=== PATIENT | female | born 1995 | race Hispanic/Latino ===

== ENCOUNTER 2017-06-23 16:35 | Observation (INO) | payer MEDICAID ==
[2017-06-23 17:12] LABS: APPEARANCE,URINE Clear (CLEAR); BILIRUBIN,URINE Negative (NEGATIVE); COLOR,URINE Yellow (YELLOW); GLUCOSE, URINE (UA) Negative (NEGATIVE); KETONES,URINE Negative (NEGATIVE); LEUKOCYTE ESTERASE ,URINE Trace (NEGATIVE); NITRATE,URINE Negative (NEGATIVE); OCCULT BLOOD,URINE Negative (NEGATIVE); PH,URINE 7.5 (5.0-8.0); PROTEIN,URINE Negative (NEGATIVE)
[2017-06-23 17:25] LABS: BACTERIA,URINE Few /HPF (None Seen); RBC,URINE None Seen /HPF (0-1); WBC,URINE None Seen /HPF (0-1)
[2017-06-29] MEDS ORDERED: LACTATED RINGERS 1000ML 1,000 ML IV ONE (21:28)
[2017-07-04] MEDS ORDERED: PROMETHAZINE HCL 25 MG/ML 1ML AMPULE IM ONE (09:11)
[2017-07-04] MEDS ORDERED: MEPERIDINE-PF 50 MG/ML SYG ONE (09:12)
[2017-07-06] MEDS ORDERED: CEFAZOLIN SODIUM 1 GM VIAL ONE ×2 (09:22→12:48)
[2017-07-06] MEDS ORDERED: LACTATED RINGERS 1000ML 1,000 ML IV ONE ×2 (09:22→12:40)
[2017-07-06] MEDS ORDERED: CALDOLOR 800MG+NS 250ML 250 ML IV ONE (09:22)
[2017-07-06] MEDS ORDERED: OXYTOCIN 10 USP UNITS/ML ONE (09:23)
[2017-07-06] MEDS ORDERED: ONDANSETRON HCL 4 MG/2 ML VIAL ONE (14:48)
== END 2017-06-23 17:56 | disposition home or self-care (01) ==
LOC: EDH 16:35 → UNDOADMOB 16:42 → LDH 16:42 → UNDODISOB 17:56
DX: O26.893 Other specified pregnancy related conditions, third trimester (principal); R51 Headache; H53.8 Other visual disturbances; Z3A.38 38 weeks gestation of pregnancy
CPT/HCPCS: 81001; 99285; G0378

== ENCOUNTER 2017-06-29 06:08 | Observation (INO) | payer MEDICAID ==
[~2017-06-29] VITALS: Ht 175.3 cm; Wt 144.2 kg
[2017-06-29] MEDS ORDERED: PREN-196 PO (06:58)
[2017-06-29] MEDS ORDERED: ROPIVACAINE 0.2%200ML EPIDURAL 200 ML EP SCH (07:00)
[2017-06-29] MEDS ORDERED: EPHEDRINE SULFATE 50 MG/ML AMPULE IVP PRN (07:00)
[2017-06-29] MEDS ORDERED: OXYTOCIN 10 USP UNITS/ML 20 UNIT in LACTATED RINGERS 1000ML 1,000 ML IV SCH (07:00)
[2017-06-29] MEDS ORDERED: NALOXONE HCL 0.4 MG/1 ML ML IV PRN (07:00)
[2017-06-29] MEDS ORDERED: LACTATED RINGERS 500 ML 500 ML IV PRN (07:00)
[2017-06-29 07:07] LABS: APPEARANCE,URINE Cloudy (CLEAR); BILIRUBIN,URINE Negative (NEGATIVE); COLOR,URINE Yellow (YELLOW); GLUCOSE, URINE (UA) Negative (NEGATIVE); KETONES,URINE Negative (NEGATIVE); LEUKOCYTE ESTERASE ,URINE Moderate (NEGATIVE); NITRATE,URINE Negative (NEGATIVE); OCCULT BLOOD,URINE Negative (NEGATIVE); PROTEIN,URINE Negative (NEGATIVE); UROBILINOGEN,URINE 0.2 mg/dL (0.2-1.0)
[2017-06-29 07:22] LABS: BACTERIA,URINE Moderate /HPF (None Seen); RBC,URINE 0-1 /HPF (0-1)
[2017-06-29] MEDS ORDERED: OXYTOCIN 10 USP UNITS/ML ONE (07:22)
[2017-06-29 08:26] LABS: BASOPHILS % (AUTO) 0.1 % (0.0-5.0); EOSINOPHILS % (AUTO) 1.4 % (0.0-8.0); HEMATOCRIT 33.9 % (36-48); LYMPHOCYTES % (AUTO) 26.9 % (21.0-51.0); MEAN CORPUSCULAR HEMOGLOBIN 27.1 pg (27.0-33.0); MEAN CORPUSCULAR HGB CONC 33.6 g/dL (32.0-36.0); MEAN CORPUSCULAR VOLUME 80.7 fL (79-99); NEUTROPHILS % (AUTO) 64.6 % (40.0-77.0); PLATELET COUNT (AUTO) 204 K/uL (130-400); RED BLOOD CELL COUNT(AUTO) 4.21 MIL/uL (4.00-5.50); RED CELL DISTRIBUTION WIDTH 14.9 % (11.0-15.5); WHITE BLOOD COUNT (AUTO) 9.4 K/uL (4.8-10.8)
[2017-06-29 08:40] LABS: CREATININE 0.7 mg/dL (0.5-1.5); POTASSIUM 3.8 mmol/L (3.5-5.1)
[2017-06-29 08:42] LABS: INR 0.94 (0.85-1.15); PARTIAL THROMBOPLASTIN TIME 31.3 SEC (26.3-35.5); PROTHROMBIN TIME 9.9 SEC (9.6-11.6)
[2017-06-29 08:46] LABS: ALBUMIN 2.3 g/dL (3.5-5.0); BILIRUBIN,TOTAL 0.4 mg/dL (0.2-1.0); TOTAL PROTEIN, SERUM 5.4 g/dL (6.0-8.3); URIC ACID 4.3 mg/dL (2.6-7.2)
[2017-06-29] MEDS: LACTATED RINGERS 1000ML 1,000 ML IV PRN (21:34)
[2017-06-30] MEDS ORDERED: LACTATED RINGERS 1000ML 1,000 ML IV ONE (04:22)
[2017-06-30] MEDS ORDERED: OXYTOCIN 10 USP UNITS/ML ONE (04:22)
[2017-06-30] MEDS: LACTATED RINGERS 1000ML 1,000 ML IV PRN (04:58)
[2017-07-01 12:08] LABS: HEPATITIS Bs ANTIGEN SCREEN P Negative (Negative)
== END 2017-06-30 10:17 | disposition home or self-care (01) ==
LOC: INTOOBSV 06:08 → LDH 06:08 → EDSTATUS 07-05 06:04
DX: O61.9 Failed induction of labor, unspecified (principal); Z3A.39 39 weeks gestation of pregnancy
CPT/HCPCS: 36415; 36430; 76819; 80053; 81001; 84550; 85025; 85384; 85610; 85730; 86592; 86850; 86900; 86901; 87340; 96361 ×2; 96365; G0378 ×29; J2590 ×2; J7120 ×3; 96360

== ENCOUNTER 2017-07-05 12:40 | Inpatient (IN) | payer MEDICAID ==
[2017-07-04] MEDS: OXYTOCIN-LR 20 UNITS/1000 ML 1,000 ML IV SCH (03:00)
[~2017-07-05] VITALS: Ht 175.3 cm; Wt 143.8 kg
[~2017-07-05 12:40] MED LIST: PREN-196 PO
[2017-07-05 13:22] LABS: HEMATOCRIT 35.4 % (36-48); MEAN CORPUSCULAR HEMOGLOBIN 27.8 pg (27.0-33.0); MEAN CORPUSCULAR HGB CONC 34.4 g/dL (32.0-36.0); MEAN CORPUSCULAR VOLUME 80.8 fL (79-99); PLATELET COUNT (AUTO) 242 K/uL (130-400); RED BLOOD CELL COUNT(AUTO) 4.39 MIL/uL (4.00-5.50); RED CELL DISTRIBUTION WIDTH 15.3 % (11.0-15.5); WHITE BLOOD COUNT (AUTO) 9.9 K/uL (4.8-10.8)
[2017-07-05] MEDS: OXYTOCIN-LR 20 UNITS/1000 ML 1,000 ML IV SCH (15:00)
[2017-07-05 18:45] VITALS: BP 120/68
[2017-07-05] MEDS: LACTATED RINGERS 1000ML 1,000 ML IV PRN (19:25)
[2017-07-06] MEDS: LACTATED RINGERS 1000ML 1,000 ML IV PRN (03:15)
[2017-07-06] MEDS ORDERED: PROMETHAZINE HCL 25 MG/ML 1ML AMPULE IM SCH (07:45)
[2017-07-06] MEDS ORDERED: MEPERIDINE-PF 50 MG/ML SYG IVP PRN (07:45)
[2017-07-06] MEDS ORDERED: CALDOLOR 800MG+NS 250ML 250 ML IV PRN (08:45)
[2017-07-06] MEDS ORDERED: LACTATED RINGERS 1000ML 1,000 ML IV SCH (08:45)
[2017-07-06] MEDS ORDERED: CEFAZOLIN SODIUM 1 GM VIAL IVP PRN (08:45)
[2017-07-06 10:21] LABS: HEPATITIS Bs ANTIGEN SCREEN P Negative (Negative)
[2017-07-06] MEDS ORDERED: FENTANYL CITRATE PF 50 MCG/1 ML 2ML VIAL ONE (13:25)
[2017-07-06] MEDS ORDERED: DURAMORPH PF1 MG/ML 10ML AMP IV ONE (13:25)
[2017-07-06] MEDS ORDERED: CEFAZOLIN SODIUM 1 GM VIAL IVP ONE (13:33)
[2017-07-06] MEDS ORDERED: ONDANSETRON HCL 4 MG/2 ML VIAL ONE (14:09)
[2017-07-06] MEDS ORDERED: PHENYLEPHRINE HCL 10 MG/ML 1ML VIAL IV ONE (14:09)
[2017-07-06] MEDS ORDERED: OXYTOCIN 10 USP UNITS/ML ONE ×2 (14:09→15:52)
[2017-07-06] MEDS ORDERED: OXYTOCIN-LR 20 UNITS/1000 ML 1,000 ML IV PRN (14:26)
[2017-07-06] MEDS ORDERED: ACETAMINOPHEN-CODEINE 300/30MG TAB PO PRN (14:30)
[2017-07-06] MEDS ORDERED: CEFAZOLIN SODIUM 1 GM VIAL IVP SCH (14:30)
[2017-07-06] MEDS ORDERED: DEXTROSE 5 %-0.45 % NACL 1,000 ML IV PRN (14:30)
[2017-07-06] MEDS ORDERED: CEFAZOLIN 3GM /D5W 100ML 100 ML IV SCH ×2 (14:30→22:00)
[2017-07-06] MEDS ORDERED: ONDANSETRON HCL 4 MG/2 ML 8 MG in SODIUM CHLORIDE 0.9% 50 ML IVP NR (15:00)
[2017-07-06] MEDS ORDERED: NALOXONE HCL 0.4 MG/1 ML ML IVP PRN (15:00)
[2017-07-06] MEDS ORDERED: EPHEDRINE SULFATE 50 MG/ML AMPULE IVP PRN (15:00)
[2017-07-06] MEDS ORDERED: ONDANSETRON HCL 4 MG/2 ML VIAL IVP PRN ×2 (15:00)
[2017-07-06] MEDS ORDERED: METOCLOPRAMIDE 10 MG/2 ML VIAL IVP PRN (15:00)
[2017-07-06] MEDS ORDERED: DiphenhydrAMINE HCL 50 MG/ML VIAL IVP PRN (15:00)
[2017-07-06] MEDS ORDERED: MORPHINE SULFATE 2 MG/ML 1ML SYG IVP PRN (15:00)
[2017-07-06] MEDS ORDERED: PROMETHAZINE HCL 25 MG/ML 1ML AMPULE IM PRN (15:00)
[2017-07-06] MEDS ORDERED: LACTATED RINGERS 1000ML 1,000 ML IV ONE (15:51)
[2017-07-06 16:20] VITALS: BP 107/47
[2017-07-06 19:23] VITALS: BP 104/54
[2017-07-06] MEDS: CEFAZOLIN SODIUM 3 GM in SODIUM CHLORIDE 0.9% 100 ML IVP SCH (22:26)
[2017-07-06] MEDS: CALDOLOR 800MG+NS 250ML 250 ML IV SCH (23:00)
[2017-07-06 23:19] VITALS: BP 110/56
[2017-07-07 03:24] VITALS: BP 99/55
[2017-07-07] MEDS: CEFAZOLIN SODIUM 3 GM in SODIUM CHLORIDE 0.9% 100 ML IVP SCH (05:44)
[2017-07-07] MEDS: CALDOLOR 800MG+NS 250ML 250 ML IV SCH (06:25)
[2017-07-07 06:54] LABS: HEMATOCRIT 29.4 % (36-48); MEAN CORPUSCULAR HEMOGLOBIN 27.7 pg (27.0-33.0); MEAN CORPUSCULAR HGB CONC 33.9 g/dL (32.0-36.0); MEAN CORPUSCULAR VOLUME 81.5 fL (79-99); PLATELET COUNT (AUTO) 177 K/uL (130-400); RED CELL DISTRIBUTION WIDTH 15.1 % (11.0-15.5); WHITE BLOOD COUNT (AUTO) 9.9 K/uL (4.8-10.8)
[2017-07-07 07:30] VITALS: BP 99/51
[2017-07-07] MEDS ORDERED: LANOLIN 30GM OINTMENT TP PRN (10:30)
[2017-07-07] MEDS ORDERED: ACETAMINOPHEN-CODEINE 300/30MG TAB PO PRN (10:30)
[2017-07-07] MEDS ORDERED: BISACODYL 10 MG SUPP.RECT RC PRN (10:30)
[2017-07-07] MEDS ORDERED: DIPHENHYDRAMINE HCL 25 MG CAPSULE PO PRN (10:30)
[2017-07-07 11:43] VITALS: BP 114/60
[2017-07-07] MEDS: DIPH,PERTUSS(ACELL),TET VAC/PF 0.5 ML VIAL IM SCH (13:52)
[2017-07-07] MEDS: IBUPROFEN 800 MG TAB PO SCH ×2 (13:53→23:46)
[2017-07-07 16:07] VITALS: BP 110/59
[2017-07-07] MEDS ORDERED: LIDOCAINE 5% TOPICAL PATCH TP ONE (18:36)
[2017-07-07] MEDS: SIMETHICONE 80 MG TAB.CHEW PO PRN ×2 (18:42→20:58)
[2017-07-07 19:50] VITALS: BP 117/58
[2017-07-07] MEDS: DOCUSATE SODIUM 100 MG CAP PO SCH (20:58)
[2017-07-07 23:47] VITALS: BP 108/56
[2017-07-08] MEDS: DIPH,PERTUSS(ACELL),TET VAC/PF 0.5 ML VIAL IM SCH (01:17)
[2017-07-08] MEDS: IBUPROFEN 800 MG TAB PO SCH ×2 (01:17→08:39)
[2017-07-08 03:19] VITALS: BP 123/68
[2017-07-08 07:30] VITALS: BP 106/64
[2017-07-08] MEDS: DOCUSATE SODIUM 100 MG CAP PO SCH (08:37)
[2017-07-08] MEDS: SIMETHICONE 80 MG TAB.CHEW PO PRN ×2 (08:37→12:53)
[2017-07-08] MEDS ORDERED: LIDOCAINE 5% TOPICAL PATCH TP SCH (09:00)
[2017-07-08] MEDS ORDERED: DOCU-116 PO (11:39)
[2017-07-08] MEDS ORDERED: MO8B PO (11:40)
[2017-07-08] MEDS ORDERED: ACET1TAB12 PO (11:40)
[2017-07-08 11:54] VITALS: BP 104/47
== END 2017-07-08 13:10 | disposition home or self-care (01) | DRG 540 ==
LOC: LDH 12:47 → OBSVTOIN 12:47 → WSH 07-06 16:22
PROC: 3E0234Z Introduction of Serum, Toxoid and Vaccine into Muscle, Percutaneous Approach (ICD-10-PCS; 2017-07-06)
PROC: 10D00Z1 Extraction of Products of Conception, Low, Open Approach (ICD-10-PCS; principal; 2017-07-06 13:30)
DX: O36.63X0 Maternal care for excessive fetal growth, third trimester, not applicable or unspecified (principal); O69.81X0 Labor and delivery complicated by cord around neck, without compression, not applicable or unspecified; Z37.0 Single live birth; Z23 Encounter for immunization; Z3A.40 40 weeks gestation of pregnancy
CPT/HCPCS: 36415; 59510; 76819; 85027; 86592; 86850; 86900; 86901; 87340; 90715; 96360; 96361; A4218; A4344; A4606; J0690; J1741; J2274; J2370; J2405; J2550; J2590; J2765; J3010; J7120

== ENCOUNTER 2017-07-12 12:44 | Emergency (ER) | payer MEDICAID ==
[~2017-07-12 12:44] MED LIST changes: +ACET1TAB12 PO; +DOCU-116 PO; +MO8B PO
== END 2017-07-12 13:26 | disposition home or self-care (01) ==
LOC: EDH 12:44
DX: O90.0 Disruption of cesarean delivery wound (principal)
CPT/HCPCS: 99282

== ENCOUNTER 2018-03-08 20:41 | Emergency (ER) | payer MEDICAID, OTHER ==
[2018-03-08] MEDS ORDERED: KETOROLAC TROMETHAMINE 60 MG/2 ML VIAL ONE (21:36)
[2018-03-08] MEDS ORDERED: DEXAMETHASONE SOD PHOSPHATE 10MG/ML 1ML VIAL ONE (21:36)
== END 2018-03-08 21:52 | disposition home or self-care (01) ==
LOC: EDH 20:41
DX: M25.561 Pain in right knee (principal); Z88.6 Allergy status to analgesic agent; E03.9 Hypothyroidism, unspecified; Z88.8 Allergy status to other drugs, medicaments and biological substances
CPT/HCPCS: 73562; 96372; 99284; J1100; J1885

== ENCOUNTER 2018-07-25 21:18 | Emergency (ER) | payer OTHER ==
[2018-07-25] MEDS ORDERED: SODIUM CHLORIDE 0.9% 1000ML 1,000 ML IV ONE (21:55)
[2018-07-25 22:12] LABS: BASOPHILS % (AUTO) 0.2 % (0.0-5.0); EOSINOPHILS % (AUTO) 4.1 % (0.0-8.0); HEMATOCRIT 38.9 % (36-48); LYMPHOCYTES % (AUTO) 32.1 % (21.0-51.0); MEAN CORPUSCULAR HEMOGLOBIN 26.3 pg (27.0-33.0); MEAN CORPUSCULAR HGB CONC 32.7 g/dL (32.0-36.0); MEAN CORPUSCULAR VOLUME 80.4 fL (79-99); MONOCYTES % (AUTO) 6.1 % (3.0-13.0); NEUTROPHILS % (AUTO) 57.5 % (40.0-77.0); NUCLEATED RED BLOOD CELLS 0.1 % (0.0-0.19); PLATELET COUNT (AUTO) 265 K/uL (130-400); RED BLOOD CELL COUNT(AUTO) 4.83 MIL/uL (4.00-5.50); RED CELL DISTRIBUTION WIDTH 14.9 % (11.0-15.5); WHITE BLOOD COUNT (AUTO) 9.7 K/uL (4.8-10.8)
[2018-07-25 22:13] LABS: APPEARANCE,URINE Clear (CLEAR); BILIRUBIN,URINE Negative (NEGATIVE); COLOR,URINE Yellow (YELLOW); GLUCOSE, URINE (UA) Negative (NEGATIVE); KETONES,URINE 15 mg/dL (NEGATIVE); LEUKOCYTE ESTERASE ,URINE Negative (NEGATIVE); NITRATE,URINE Negative (NEGATIVE); OCCULT BLOOD,URINE Negative (NEGATIVE); PROTEIN,URINE Negative (NEGATIVE)
[2018-07-25 22:18] LABS: HCG,QUAL RESULT NEGATIVE (NEGATIVE)
[2018-07-25 22:19] LABS: CREATININE 1.1 mg/dL (0.5-1.5); POTASSIUM 3.6 mmol/L (3.5-5.1)
[2018-07-25 22:33] LABS: ALBUMIN 3.8 g/dL (3.5-5.0); BILIRUBIN,DIRECT 0.1 mg/dL (0.0-0.3); BILIRUBIN,TOTAL 0.3 mg/dL (0.2-1.0)
== END 2018-07-25 22:57 | disposition home or self-care (01) ==
LOC: EDH 21:18
DX: E28.2 Polycystic ovarian syndrome (principal); E03.9 Hypothyroidism, unspecified; Z88.8 Allergy status to other drugs, medicaments and biological substances
CPT/HCPCS: 36415; 76830; 80048; 80076; 81003; 81025; 85025; 99284; J7030

== ENCOUNTER 2019-08-11 11:46 | Emergency (ER) | payer SELFPAY ==
[~2019-08-11 11:46] MED LIST changes: +IBUP-1493 PO; -MO8B PO
[2019-08-11 13:22] LABS: BILIRUBIN,URINE Negative (NEGATIVE); COLOR,URINE Yellow (YELLOW); GLUCOSE, URINE (UA) Negative (NEGATIVE); KETONES,URINE Negative (NEGATIVE); LEUKOCYTE ESTERASE ,URINE Trace (NEGATIVE); NITRATE,URINE Negative (NEGATIVE); OCCULT BLOOD,URINE Negative (NEGATIVE); PH,URINE 5.5 (5.0-8.0); PROTEIN,URINE Negative (NEGATIVE); UROBILINOGEN,URINE 0.2 mg/dL (0.2-1.0)
[2019-08-11 13:28] LABS: AMPHET/METH SCREEN,URINE NEGATIVE (NEGATIVE); BARBITURATE SCREEN, URINE NEGATIVE (NEGATIVE); BENZODIAZEPINES SCREEN,URINE NEGATIVE (NEGATIVE); CANNABINOID SCREEN,URINE NEGATIVE (NEGATIVE); COCAINE SCREEN,URINE NEGATIVE (NEGATIVE); OPIATE SCREEN,URINE NEGATIVE (NEGATIVE); PHENCYCLIDINE SCREEN,URINE NEGATIVE (NEGATIVE)
[2019-08-11 13:41] LABS: APPEARANCE,URINE CLEAR (CLEAR)
[2019-08-11 13:52] LABS: BACTERIA,URINE Rare /HPF (None Seen); RBC,URINE 0-1 /HPF (0-1); SQUAMOUS EPITHELIAL CELL,UR Rare /HPF (0-2); WBC,URINE 0-1 /HPF (0-1)
[2019-08-11 14:15] LABS: HCG,QUAL RESULT NEGATIVE (NEGATIVE)
[2019-08-11] MEDS ORDERED: KETOROLAC TROMETHAMINE 30MG/ML ONE (14:39)
== END 2019-08-11 15:10 | disposition home or self-care (01) ==
LOC: EDH 11:46
DX: N83.291 Other ovarian cyst, right side (principal); E03.9 Hypothyroidism, unspecified
CPT/HCPCS: 76856; 80305; 81001; 81025; 96372; 99284; J1885

== ENCOUNTER 2019-08-16 20:43 | Emergency (ER) | payer SELFPAY ==
[2019-08-16 21:15] LABS: BASOPHILS % (AUTO) 0.3 % (0.0-5.0); EOSINOPHILS % (AUTO) 3.6 % (0.0-8.0); HEMATOCRIT 35.7 % (36-48); LYMPHOCYTES % (AUTO) 38.3 % (21.0-51.0); MEAN CORPUSCULAR HGB CONC 31.1 g/dL (32.0-36.0); MEAN CORPUSCULAR VOLUME 80.4 fL (79-99); MONOCYTES % (AUTO) 9.1 % (3.0-13.0); NEUTROPHILS % (AUTO) 48.6 % (40.0-77.0); PLATELET COUNT (AUTO) 232 K/uL (130-400); RED BLOOD CELL COUNT(AUTO) 4.44 MIL/uL (4.00-5.50); WHITE BLOOD COUNT (AUTO) 6.9 K/uL (4.8-10.8)
[2019-08-16 21:29] LABS: CREATININE 0.9 mg/dL (0.5-1.5); POTASSIUM 3.9 mmol/L (3.5-5.1)
[2019-08-16 21:32] LABS: ALBUMIN 3.7 g/dL (3.5-5.0); BILIRUBIN,TOTAL 0.4 mg/dL (0.2-1.0); TOTAL PROTEIN, SERUM 6.7 g/dL (6.0-8.3)
[2019-08-16 21:38] LABS: APPEARANCE,URINE Clear (CLEAR); BILIRUBIN,URINE Negative (NEGATIVE); COLOR,URINE Yellow (YELLOW); GLUCOSE, URINE (UA) Negative (NEGATIVE); KETONES,URINE Negative (NEGATIVE); LEUKOCYTE ESTERASE ,URINE Negative (NEGATIVE); NITRATE,URINE Negative (NEGATIVE); OCCULT BLOOD,URINE Negative (NEGATIVE); PROTEIN,URINE Negative (NEGATIVE); UROBILINOGEN,URINE 0.2 mg/dL (0.2-1.0)
[2019-08-16 21:40] LABS: HCG,QUAL RESULT NEGATIVE (NEGATIVE)
[2019-08-16] MEDS ORDERED: IOHEXOL-350 75 ML VIAL IV ONE (22:20)
[2019-08-16] MEDS ORDERED: SODIUM CHLORIDE 0.9% 1000ML 1,000 ML IV ONE (22:52)
[2019-08-16] MEDS ORDERED: CEFTRIAXONE SODIUM 500 MG VIAL ONE (23:03)
[2019-08-16] MEDS ORDERED: LIDOCAINE HCL-MPF 1% 2ML VIAL ONE (23:04)
[2019-08-16] MEDS ORDERED: ACETAMINOPHEN 325 MG TAB ONE (23:04)
== END 2019-08-16 23:37 | disposition home or self-care (01) ==
LOC: EDH 20:43
DX: N73.9 Female pelvic inflammatory disease, unspecified (principal); E03.9 Hypothyroidism, unspecified; Z98.890 Other specified postprocedural states; Z88.8 Allergy status to other drugs, medicaments and biological substances
CPT/HCPCS: 36415; 74177; 76856; 80053; 81003; 81025; 85025; 96372; 99285; J0696; J3490; J7030; Q9967

== ENCOUNTER 2020-04-01 10:52 | Emergency (ER) | payer SELFPAY ==
[2020-04-01] MEDS ORDERED: IBUPROFEN 400 MG TABLET ONE (11:05)
[2020-04-01] MEDS ORDERED: DIAZEPAM 5 MG TABLET ONE (11:05)
== END 2020-04-01 12:24 | disposition home or self-care (01) ==
LOC: EDH 10:52
DX: M62.838 Other muscle spasm (principal); E03.9 Hypothyroidism, unspecified; Z88.6 Allergy status to analgesic agent

== ENCOUNTER 2021-07-29 23:38 | Emergency (ER) | payer SELFPAY ==
[~2021-07-29] VITALS: Ht 175.3 cm; Wt 122.5 kg
[2021-07-30] MEDS ORDERED: ALBUTEROL INHALER 90MCG/INH IH ONE
[2021-07-30] MEDS ORDERED: LIDOCAINE HCL 2% VISCOUS 15 ML UDCUP PO ONE
[2021-07-30] MEDS ORDERED: KETOROLAC 60 MG VIAL (30MG/ML) IM ONE
[2021-07-30] MEDS ORDERED: DEXAMETHASONE 4 MG TAB PO ONE
[2021-07-30] MEDS ORDERED: MAG/ALUM/SIMETH 30 ML UDCUP PO ONE
[2021-07-30 01:53] VITALS: BP 127/81
[2021-07-30] MEDS ORDERED: BENZ-39 PO (02:11)
[2021-07-30] MEDS ORDERED: AZIT250T9 PO (02:11)
[2021-07-30] MEDS ORDERED: AZITHROMYCIN 250 MG TABLET PO ONE (02:30)
== END 2021-07-30 02:55 | disposition home or self-care (01) ==
LOC: EDH 23:38
DX: J40 Bronchitis, not specified as acute or chronic (principal); Z20.822 Contact with and (suspected) exposure to COVID-19; Z79.1 Long term (current) use of non-steroidal anti-inflammatories (NSAID); Z79.52 Long term (current) use of systemic steroids
CPT/HCPCS: 71045; 87635; 87804 ×2; 96372; 99284; C9803; J1885; J8540

== ENCOUNTER 2021-08-09 05:16 | Emergency (ER) | payer OTHER ==
[~2021-08-09] VITALS: Ht 175.3 cm; Wt 122.5 kg
[~2021-08-09 05:16] MED LIST changes: +AZIT250T9 PO; +BENZ-39 PO
[2021-08-09 05:36] LABS: BASOPHILS % (AUTO) 0.1 % (0.0-5.0); EOSINOPHILS % (AUTO) 2.1 % (0.0-8.0); HEMATOCRIT 40.9 % (36-48); MEAN CORPUSCULAR HEMOGLOBIN 26.3 pg (27.0-33.0); MEAN CORPUSCULAR HGB CONC 31.5 g/dL (32.0-36.0); MEAN CORPUSCULAR VOLUME 83.5 fL (79-99); MONOCYTES % (AUTO) 8.4 % (3.0-13.0); NEUTROPHILS % (AUTO) 71.1 % (40.0-77.0); PLATELET COUNT (AUTO) 243 K/uL (130-400); RED CELL DISTRIBUTION WIDTH 14.6 % (11.0-15.5); WHITE BLOOD COUNT (AUTO) 9.8 K/uL (4.8-10.8)
[2021-08-09 05:48] LABS: INR 0.93 (0.85-1.15); PROTHROMBIN TIME 10.2 SEC (9.6-11.6)
[2021-08-09 05:50] LABS: PARTIAL THROMBOPLASTIN TIME 29.6 SEC (26.3-35.5)
[2021-08-09 05:52] LABS: ALBUMIN 3.8 g/dL (3.5-5.0); BILIRUBIN,TOTAL 0.5 mg/dL (0.2-1.0); CREATININE 0.8 mg/dL (0.5-1.5); POTASSIUM 3.8 mmol/L (3.5-5.1); TOTAL PROTEIN, SERUM 7.4 g/dL (6.0-8.3)
[2021-08-09] MEDS ORDERED: 0.9%NACL 1000ML 1,000 ML IV SCH (06:30)
[2021-08-09 06:58] LABS: APPEARANCE,URINE Clear (CLEAR); BILIRUBIN,URINE Negative (NEGATIVE); COLOR,URINE Yellow (YELLOW); GLUCOSE, URINE (UA) Negative (NEGATIVE); KETONES,URINE Negative (NEGATIVE); LEUKOCYTE ESTERASE ,URINE Negative (NEGATIVE); NITRATE,URINE Negative (NEGATIVE); OCCULT BLOOD,URINE Negative (NEGATIVE); PH,URINE 7.5 (5.0-8.0); PROTEIN,URINE Negative (NEGATIVE); UROBILINOGEN,URINE 0.2 mg/dL (0.2-1.0)
[2021-08-09] MEDS ORDERED: 0.9%NACL 1000ML 1,000 ML IV ONE (06:59)
[2021-08-09 07:16] LABS: BACTERIA,URINE Moderate /HPF (None Seen); RBC,URINE 0-1 /HPF (0-1); WBC,URINE 0-1 /HPF (0-1)
[2021-08-09 07:31] VITALS: BP 118/73
== END 2021-08-09 07:52 | disposition home or self-care (01) ==
LOC: EDH 05:16
DX: R55 Syncope and collapse (principal); E86.9 Volume depletion, unspecified; R07.89 Other chest pain; R06.02 Shortness of breath; E03.9 Hypothyroidism, unspecified; Z98.890 Other specified postprocedural states; Z88.5 Allergy status to narcotic agent; Z79.899 Other long term (current) drug therapy
CPT/HCPCS: 36415; 71045; 80053; 81001; 84484; 84703; 85025; 85378; 85610; 85730; 87088; 93005; 96360; 99285; J7030

== ENCOUNTER 2022-01-04 04:58 | Emergency (ER) | payer OTHER ==
[~2022-01-04] VITALS: Ht 175.3 cm; Wt 142.9 kg
[2022-01-04] MEDS ORDERED: ONDANSETRON 4MG INJ IVP ONE (05:30)
[2022-01-04] MEDS ORDERED: LACTATED RINGERS 1000ML 1,000 ML IV ONE (05:30)
[2022-01-04] MEDS ORDERED: ACETAMINOPHEN 325 MG TAB PO ONE (05:30)
[2022-01-04 05:34] LABS: BASOPHILS % (AUTO) 0.3 % (0.0-5.0); EOSINOPHILS % (AUTO) 3.9 % (0.0-8.0); HEMATOCRIT 39.6 % (36-48); LYMPHOCYTES % (AUTO) 26.2 % (21.0-51.0); MEAN CORPUSCULAR HEMOGLOBIN 25.5 pg (27.0-33.0); MEAN CORPUSCULAR HGB CONC 32.1 g/dL (32.0-36.0); MEAN CORPUSCULAR VOLUME 79.5 fL (79-99); NEUTROPHILS % (AUTO) 62.2 % (40.0-77.0); PLATELET COUNT (AUTO) 304 K/uL (130-400); RED BLOOD CELL COUNT(AUTO) 4.98 MIL/uL (4.00-5.50); RED CELL DISTRIBUTION WIDTH 14.2 % (11.0-15.5); WHITE BLOOD COUNT (AUTO) 10.2 K/uL (4.8-10.8)
[2022-01-04 05:35] LABS: APPEARANCE,URINE CLEAR (CLEAR); BILIRUBIN,URINE NEGATIVE (NEGATIVE); COLOR,URINE YELLOW (YELLOW); GLUCOSE, URINE (UA) NEGATIVE (NEGATIVE); KETONES,URINE NEGATIVE (NEGATIVE); LEUKOCYTE ESTERASE ,URINE NEGATIVE (NEGATIVE); NITRATE,URINE NEGATIVE (NEGATIVE); OCCULT BLOOD,URINE MODERATE (NEGATIVE); PH,URINE 5.5 (5.0-8.0); PROTEIN,URINE NEGATIVE (NEGATIVE); UROBILINOGEN,URINE 0.2 mg/dL (0.2-1.0)
[2022-01-04 05:38] LABS: HCG,QUAL RESULT NEGATIVE (NEGATIVE)
[2022-01-04 05:40] LABS: BACTERIA,URINE None Seen /HPF (None Seen); SQUAMOUS EPITHELIAL CELL,UR Rare /HPF (0-2); WBC,URINE None Seen /HPF (0-1)
[2022-01-04 05:43] LABS: CREATININE 0.8 mg/dL (0.5-1.5); POTASSIUM 3.7 mmol/L (3.5-5.1)
[2022-01-04 05:48] LABS: ALBUMIN 3.6 g/dL (3.5-5.0); TOTAL PROTEIN, SERUM 7.1 g/dL (6.0-8.3)
[2022-01-04] MEDS ORDERED: IOHEXOL 350 MG/ML 100ML INFUS..BTL IV ONE (06:24)
[2022-01-04 09:07] VITALS: BP 122/60
== END 2022-01-04 09:25 | disposition home or self-care (01) ==
LOC: EDH 04:58
DX: N81.10 Cystocele, unspecified (principal); R42 Dizziness and giddiness; E03.9 Hypothyroidism, unspecified; Z79.899 Other long term (current) drug therapy; Z79.1 Long term (current) use of non-steroidal anti-inflammatories (NSAID)
CPT/HCPCS: 99285; 74177; 96374; 96361; 80053; 85025; 81001; 81025; 36415; J7120; J2405; Q9967

== ENCOUNTER 2023-04-22 01:57 | Inpatient (IN) | payer OTHER ==
[~2023-04-22] VITALS: Ht 175.3 cm; Wt 151.7 kg
[2023-04-22 02:25] LABS: BASOPHILS # (AUTO) 0.02 K/uL (0.00-0.20); BASOPHILS % (AUTO) 0.1 % (0.0-5.0); EOSINOPHILS # (AUTO) 0.35 K/uL (0.00-0.70); HEMATOCRIT 34.5 % (36-48); IMMATURE GRANULOCYTE ABSOLUTE 0.06 K/uL (0-1); LYMPHOCYTES # (AUTO) 1.9 K/uL (1.0-4.8); LYMPHOCYTES % (AUTO) 10.8 % (21.0-51.0); MEAN CORPUSCULAR HEMOGLOBIN 24.2 pg (27.0-33.0); MEAN CORPUSCULAR VOLUME 78.1 fL (79-99); MONOCYTES # (AUTO) 1.4 K/uL (0.1-1.0); NEUTROPHILS # (AUTO) 13.7 K/uL (1.8-7.7); NEUTROPHILS % (AUTO) 78.8 % (40.0-77.0); PLATELET COUNT (AUTO) 306 K/uL (130-400); RED BLOOD CELL COUNT(AUTO) 4.42 MIL/uL (4.00-5.50); RED CELL DISTRIBUTION WIDTH 15.3 % (11.0-15.5); WHITE BLOOD COUNT (AUTO) 17.4 K/uL (4.8-10.8)
[2023-04-22] MEDS ORDERED: LACTATED RINGERS 1000ML IV SCH (02:30)
[2023-04-22 02:34] LABS: POTASSIUM 3.4 mmol/L (3.5-5.1)
[2023-04-22 02:38] LABS: ALBUMIN 3.5 g/dL (3.5-5.0); BILIRUBIN,TOTAL 0.6 mg/dL (0.2-1.0); TOTAL PROTEIN, SERUM 6.8 g/dL (6.0-8.3)
[2023-04-22 02:39] LABS: SARS-CoV-2, RNA, NAAT NEGATIVE SARS CoV-2 (NEGATIVE)
[2023-04-22 02:42] LABS: INFLUENZA TYPE A Negative For Type A (NEGATIVE); INFLUENZA TYPE B Negative For Type B (NEGATIVE)
[2023-04-22 02:47] LABS: APPEARANCE,URINE CLEAR (CLEAR); BILIRUBIN,URINE NEGATIVE (NEGATIVE); COLOR,URINE COLORLESS (YELLOW); GLUCOSE, URINE (UA) NEGATIVE (NEGATIVE); KETONES,URINE NEGATIVE (NEGATIVE); LEUKOCYTE ESTERASE ,URINE NEGATIVE Leu/uL (NEGATIVE); NITRATE,URINE NEGATIVE (NEGATIVE); OCCULT BLOOD,URINE NEGATIVE (NEGATIVE); PROTEIN,URINE NEGATIVE (NEGATIVE); UROBILINOGEN,URINE 0.2 mg/dL (0.2-1.0)
[2023-04-22 02:48] LABS: ADD UA MICROSCOPIC NO
[2023-04-22 02:50] LABS: HCG,QUALITATIVE URINE NEGATIVE (NEGATIVE)
[2023-04-22] MEDS ORDERED: ZOSYN 3.375GM+NS 50ML 50 ML ONE (03:10)
[2023-04-22] MEDS ORDERED: VANCOMYCIN 1G/250ML KIT 250 ML IV ONE ×2 (03:10→08:00)
[2023-04-22] MEDS ORDERED: 0.9%NACL 1000ML 1,500 ML IV ONE (03:30)
[2023-04-22] MEDS ORDERED: ZOSYN 3.375GM +NS 50ML IV ONE (03:30)
[2023-04-22] MEDS ORDERED: VANCOMYCIN KIT 1 GM/250 ML IV.KIT IV ONE (03:30)
[2023-04-22] MEDS ORDERED: IBUP-1493 PO (05:41)
[2023-04-22] MEDS ORDERED: AMOX1TAB16 PO (05:41)
[2023-04-22] MEDS ORDERED: VANCOMYCIN 2GM/500 ML BAG 500 ML IV ONE (07:30)
[2023-04-22] MEDS ORDERED: VANCOMYCIN PROTOCOL PER PHARMACY IV SCH (07:30)
[2023-04-22] MEDS ORDERED: ONDANSETRON 4MG INJ IVP PRN (07:30)
[2023-04-22] MEDS: 0.9%NACL 1000ML 1,000 ML IV SCH ×2 (07:51→20:55)
[2023-04-22] MEDS: ENOXAPARIN SODIUM 40 MG/0.4 ML SYRINGE SQ SCH (07:51)
[2023-04-22] MEDS: FAMOTIDINE 20MG TAB PO SCH ×2 (07:51→20:54)
[2023-04-22] MEDS ORDERED: MAGNESIUM 2GM PREMIX 50ML 50 ML IV PRN (09:00)
[2023-04-22] MEDS ORDERED: POTASSIUM CHLORIDE 10% ELIXIR 20 MEQ/15 ML UDCUP PO PRN (09:00)
[2023-04-22] MEDS ORDERED: POTASSIUM CHLORIDE 20MEQ/100ML 100 ML IV PRN (09:00)
[2023-04-22 09:40] VITALS: BP 137/85; PULSE 103; RESP 20
[2023-04-22] MEDS: ZOSYN 3.375GM +NS 50ML IV SCH ×2 (13:09→20:54)
[2023-04-22] MEDS ORDERED: VANCOMYCIN KIT 1 GM/250 ML IV.KIT IV SCH (15:00)
[2023-04-22] MEDS ORDERED: HONEY 1 APPL/ML TUBE TP ONE (15:09)
[2023-04-22 16:00] VITALS: BP 139/90; PULSE 111; RESP 18
[2023-04-22] MEDS: ACETAMINOPHEN 325 MG TAB PO PRN (18:56)
[2023-04-22 19:00] VITALS: BP 128/67; PULSE 108; RESP 18
[2023-04-22] MEDS: VANCOMYCIN 1.5 GM/250 ML BAG 250 ML IV SCH (20:54)
[2023-04-22 23:00] VITALS: BP 129/75; PULSE 103; RESP 18
[2023-04-23 04:03] VITALS: BP 129/77; PULSE 94; RESP 19
[2023-04-23] MEDS: ZOSYN 3.375GM +NS 50ML IV SCH ×3 (04:58→20:05)
[2023-04-23 05:25] LABS: BASOPHILS # (AUTO) 0.03 K/uL (0.00-0.20); BASOPHILS % (AUTO) 0.2 % (0.0-5.0); EOSINOPHILS # (AUTO) 0.78 K/uL (0.00-0.70); EOSINOPHILS % (AUTO) 5.8 % (0.0-8.0); HEMATOCRIT 32.6 % (36-48); IMMATURE GRANULOCYTE ABSOLUTE 0.07 K/uL (0-1); LYMPHOCYTES # (AUTO) 2.4 K/uL (1.0-4.8); LYMPHOCYTES % (AUTO) 17.5 % (21.0-51.0); MEAN CORPUSCULAR HEMOGLOBIN 24.5 pg (27.0-33.0); MEAN CORPUSCULAR HGB CONC 30.1 g/dL (32.0-36.0); MEAN CORPUSCULAR VOLUME 81.5 fL (79-99); MONOCYTES % (AUTO) 7.3 % (3.0-13.0); NEUTROPHILS # (AUTO) 9.2 K/uL (1.8-7.7); NEUTROPHILS % (AUTO) 68.7 % (40.0-77.0); PLATELET COUNT (AUTO) 267 K/uL (130-400); RED CELL DISTRIBUTION WIDTH 15.4 % (11.0-15.5); WHITE BLOOD COUNT (AUTO) 13.4 K/uL (4.8-10.8)
[2023-04-23 05:37] LABS: CREATININE 0.8 mg/dL (0.5-1.5); MAGNESIUM 1.8 mg/dL (1.80-2.40); POTASSIUM 3.4 mmol/L (3.5-5.1)
[2023-04-23] MEDS: KCL 20 MEQ ERTAB PO PRN ×2 (06:16→13:11)
[2023-04-23 08:00] VITALS: BP 110/60; PULSE 84; RESP 18; O2SAT 99
[2023-04-23] MEDS: ENOXAPARIN SODIUM 40 MG/0.4 ML SYRINGE SQ SCH (09:00)
[2023-04-23] MEDS: FAMOTIDINE 20MG TAB PO SCH ×2 (09:43→20:05)
[2023-04-23] MEDS: VANCOMYCIN 1.5 GM/250 ML BAG 250 ML IV SCH (09:43)
[2023-04-23] MEDS: 0.9%NACL 1000ML 1,000 ML IV SCH ×2 (10:50→23:30)
[2023-04-23] MEDS: HONEY 1 APPL/ML TUBE TP SCH (10:51)
[2023-04-23 12:00] VITALS: BP 128/72; PULSE 93; RESP 18
[2023-04-23 16:00] VITALS: BP 150/87; PULSE 93; RESP 18
[2023-04-23 20:00] VITALS: BP 132/73; PULSE 102; RESP 18
[2023-04-23 22:38] VITALS: O2SAT 99
[2023-04-24] VITALS (8 sets, daily range): BP systolic 110–162; BP diastolic 61–96; PULSE 84–89; RESP 18–20; TEMP 99.1; O2SAT 98
[2023-04-24] MEDS: VANCOMYCIN 1.5 GM/250 ML BAG 250 ML IV SCH ×5 (00:16→21:42)
[2023-04-24] MEDS: ACETAMINOPHEN 325 MG TAB PO PRN ×2 (00:53→17:40)
[2023-04-24] MEDS: ZOSYN 3.375GM +NS 50ML IV SCH ×3 (04:16→21:00)
[2023-04-24] MEDS: ENOXAPARIN SODIUM 40 MG/0.4 ML SYRINGE SQ SCH (09:00)
[2023-04-24] MEDS: HONEY 1 APPL/ML TUBE TP SCH (09:25)
[2023-04-24] MEDS: FAMOTIDINE 20MG TAB PO SCH ×2 (09:26→21:29)
[2023-04-24 15:11] LABS: HEMATOCRIT 32.7 % (36-48); MEAN CORPUSCULAR HEMOGLOBIN 24.6 pg (27.0-33.0); MEAN CORPUSCULAR HGB CONC 30.6 g/dL (32.0-36.0); MEAN CORPUSCULAR VOLUME 80.5 fL (79-99); RED BLOOD CELL COUNT(AUTO) 4.06 MIL/uL (4.00-5.50); RED CELL DISTRIBUTION WIDTH 15.4 % (11.0-15.5); WHITE BLOOD COUNT (AUTO) 10.5 K/uL (4.8-10.8)
[2023-04-24 15:37] LABS: CREATININE 0.9 mg/dL (0.5-1.5); POTASSIUM 3.5 mmol/L (3.5-5.1)
[2023-04-24 15:41] LABS: ALBUMIN 3.2 g/dL (3.5-5.0); BILIRUBIN,TOTAL 0.3 mg/dL (0.2-1.0)
[2023-04-24] MEDS ORDERED: ACETAMINOPHEN 325 MG TAB PO PRN (18:30)
[2023-04-25] VITALS (8 sets, daily range): BP systolic 118–136; BP diastolic 65–86; PULSE 78–93; RESP 17–20; O2SAT 97–99
[2023-04-25] MEDS: 0.9%NACL 1000ML 1,000 ML IV SCH ×2 (01:19→21:45)
[2023-04-25] MEDS: VANCOMYCIN 1.5 GM/250 ML BAG 250 ML IV SCH ×3 (05:05→21:43)
[2023-04-25] MEDS: ZOSYN 3.375GM +NS 50ML IV SCH ×3 (05:05→21:43)
[2023-04-25 06:29] LABS: BASOPHILS # (AUTO) 0.02 K/uL (0.00-0.20); BASOPHILS % (AUTO) 0.2 % (0.0-5.0); EOSINOPHILS # (AUTO) 0.86 K/uL (0.00-0.70); EOSINOPHILS % (AUTO) 10.7 % (0.0-8.0); HEMATOCRIT 30.1 % (36-48); IMMATURE GRANULOCYTE ABSOLUTE 0.02 K/uL (0-1); LYMPHOCYTES # (AUTO) 2.5 K/uL (1.0-4.8); LYMPHOCYTES % (AUTO) 30.6 % (21.0-51.0); MEAN CORPUSCULAR HEMOGLOBIN 24.1 pg (27.0-33.0); MEAN CORPUSCULAR HGB CONC 29.6 g/dL (32.0-36.0); MEAN CORPUSCULAR VOLUME 81.4 fL (79-99); MONOCYTES # (AUTO) 0.7 K/uL (0.1-1.0); MONOCYTES % (AUTO) 8.1 % (3.0-13.0); NEUTROPHILS % (AUTO) 50.2 % (40.0-77.0); PLATELET COUNT (AUTO) 257 K/uL (130-400); RED CELL DISTRIBUTION WIDTH 15.3 % (11.0-15.5); WHITE BLOOD COUNT (AUTO) 8.1 K/uL (4.8-10.8)
[2023-04-25 06:43] LABS: ALBUMIN 2.8 g/dL (3.5-5.0); BILIRUBIN,TOTAL 0.3 mg/dL (0.2-1.0); CREATININE 0.9 mg/dL (0.5-1.5); POTASSIUM 3.5 mmol/L (3.5-5.1); TOTAL PROTEIN, SERUM 6.1 g/dL (6.0-8.3)
[2023-04-25] MEDS ORDERED: PREN-196 PO (07:48)
[2023-04-25] MEDS: FAMOTIDINE 20MG TAB PO SCH ×2 (09:18→21:43)
[2023-04-25] MEDS: ENOXAPARIN SODIUM 40 MG/0.4 ML SYRINGE SQ SCH (09:19)
[2023-04-25] MEDS: HONEY 1 APPL/ML TUBE TP SCH (09:20)
[2023-04-25] MEDS: KCL 20 MEQ ERTAB PO PRN ×2 (09:28→13:18)
[2023-04-26 03:53] VITALS: BP 116/59; PULSE 76; RESP 16
[2023-04-26] MEDS: ZOSYN 3.375GM +NS 50ML IV SCH (04:46)
[2023-04-26] MEDS: 0.9%NACL 1000ML 1,000 ML IV SCH (04:50)
[2023-04-26] MEDS: VANCOMYCIN 1.5 GM/250 ML BAG 250 ML IV SCH (04:51)
[2023-04-26 08:00] VITALS: BP 128/63; PULSE 70; RESP 17
[2023-04-26] MEDS: ENOXAPARIN SODIUM 40 MG/0.4 ML SYRINGE SQ SCH (09:00)
[2023-04-26] MEDS: FAMOTIDINE 20MG TAB PO SCH (09:31)
[2023-04-26 09:45] VITALS: O2SAT 95
[2023-04-26 12:00] VITALS: BP 149/63; PULSE 79; RESP 17
[2023-04-26] MEDS ORDERED: KCL 20 MEQ ERTAB PO ONE (14:30)
== END 2023-04-26 14:00 | disposition home or self-care (01) | DRG 862 ==
LOC: EDH 01:57 → EDHIP 07:09 → 3CH 09:40
PROVIDERS: ADMIT Internal Medicine; ATTEND Internal Medicine
DX: T81.41XA Infection following a procedure, superficial incisional surgical site, initial encounter (principal); A41.9 Sepsis, unspecified organism; Z68.42 Body mass index [BMI] 45.0-49.9, adult; L03.313 Cellulitis of chest wall; Z20.822 Contact with and (suspected) exposure to COVID-19; Y83.8 Other surgical procedures as the cause of abnormal reaction of the patient, or of later complication, without mention of misadventure at the time of the procedure; E66.01 Morbid (severe) obesity due to excess calories; C50.911 Malignant neoplasm of unspecified site of right female breast; C50.912 Malignant neoplasm of unspecified site of left female breast; E28.2 Polycystic ovarian syndrome; E03.9 Hypothyroidism, unspecified; Z90.13 Acquired absence of bilateral breasts and nipples
CPT/HCPCS: 36415; 70450; 71045; 76641; 76642; 80048; 80053; 80202; 81003; 81025; 83605; 83735; 84145; 85025; 85027; 86140; 87040; 87071; 87077; 87186; 87205; 87635; 87804; 93005; 96365; 96366; 96375; A6248; C9803; G0378; J1650; J2543; J3370; J3475

== ENCOUNTER 2024-03-06 23:55 | Inpatient (IN) | payer OTHER ==
[~2024-03-06] VITALS: Ht 167.6 cm; Wt 148.8 kg
[~2024-03-06 23:55] MED LIST changes: -AZIT250T9 PO; -BENZ-39 PO
[2024-03-07] VITALS (7 sets, daily range): BP systolic 116–143; BP diastolic 66–98; PULSE 78–105; RESP 18–20; TEMP 98.1–98.8; O2SAT 96
[2024-03-07 00:20] LABS: APPEARANCE,URINE CLEAR (CLEAR); BILIRUBIN,URINE NEGATIVE (NEGATIVE); COLOR,URINE COLORLESS (YELLOW); GLUCOSE, URINE (UA) NEGATIVE (NEGATIVE); KETONES,URINE NEGATIVE (NEGATIVE); LEUKOCYTE ESTERASE ,URINE 250 Leu/uL (NEGATIVE); NITRATE,URINE NEGATIVE (NEGATIVE); OCCULT BLOOD,URINE NEGATIVE (NEGATIVE); PROTEIN,URINE NEGATIVE (NEGATIVE); UROBILINOGEN,URINE 0.2 mg/dL (0.2-1.0)
[2024-03-07 00:23] LABS: ADD UA MICROSCOPIC YES
[2024-03-07 00:29] LABS: BACTERIA,URINE RARE /HPF (None Seen); RBC,URINE 0-1 /HPF (0-1); SQUAMOUS EPITHELIAL CELL,UR FEW /HPF (0-2)
[2024-03-07 00:39] LABS: BASOPHILS # (AUTO) 0.01 K/uL (0.00-0.20); BASOPHILS % (AUTO) 0.1 % (0.0-5.0); EOSINOPHILS # (AUTO) 0.27 K/uL (0.00-0.70); EOSINOPHILS % (AUTO) 3.1 % (0.0-8.0); HEMATOCRIT 38.6 % (36-48); IMMATURE GRANULOCYTE ABSOLUTE 0.04 K/uL (0-1); LYMPHOCYTES # (AUTO) 1.4 K/uL (1.0-4.8); LYMPHOCYTES % (AUTO) 15.3 % (21.0-51.0); MEAN CORPUSCULAR HEMOGLOBIN 26.5 pg (27.0-33.0); MEAN CORPUSCULAR HGB CONC 32.4 g/dL (32.0-36.0); MONOCYTES # (AUTO) 0.5 K/uL (0.1-1.0); MONOCYTES % (AUTO) 5.2 % (3.0-13.0); NEUTROPHILS # (AUTO) 6.7 K/uL (1.8-7.7); NEUTROPHILS % (AUTO) 75.8 % (40.0-77.0); PLATELET COUNT (AUTO) 232 K/uL (130-400); RED BLOOD CELL COUNT(AUTO) 4.71 MIL/uL (4.00-5.50); RED CELL DISTRIBUTION WIDTH 14.5 % (11.0-15.5); WHITE BLOOD COUNT (AUTO) 8.8 K/uL (4.8-10.8)
[2024-03-07 00:45] LABS: CREATININE 0.8 mg/dL (0.5-1.0); POTASSIUM 4.1 mmol/L (3.5-5.1)
[2024-03-07] MEDS ORDERED: IOHEXOL 350 MG/ML 100ML INFUS..BTL IV ONE (01:32)
[2024-03-07] MEDS: ONDANSETRON 4MG INJ IVP ONE (02:23)
[2024-03-07] MEDS: ketOROlac 15MG/ML VIAL (15MG/ML) IV ONE (02:23)
[2024-03-07] MEDS ORDERED: MEPERIDINE-PF 50 MG/ML SYG IVP PRN (05:30)
[2024-03-07] MEDS: PROMETHAZINE HCL 25 MG/ML 1ML AMPULE IM PRN (05:57)
[2024-03-07] MEDS: MEPERIDINE-PF 75 MG/ML SYG IM PRN (05:58)
[2024-03-07] MEDS: LACTATED RINGERS 1000ML 1,000 ML IV SCH (06:23)
[2024-03-07] MEDS: IBUPROFEN 600 MG TABLET PO SCH (14:00)
[2024-03-07] MEDS: acetaMINOPHEN 325 MG TAB PO PRN (23:00)
[2024-03-08 04:02] VITALS: BP 112/55; PULSE 75; RESP 18; TEMP 98
[2024-03-08 07:45] VITALS: BP 122/69; PULSE 72; RESP 20; TEMP 98.1
[2024-03-08] MEDS: IBUPROFEN 600 MG TABLET PO SCH (10:19)
[2024-03-08 12:00] VITALS: BP 123/84; PULSE 75; RESP 20; TEMP 97.6
[2024-03-08 16:15] VITALS: BP 123/69; PULSE 68; RESP 20; TEMP 98.1
[2024-03-08 19:23] VITALS: BP 134/76; PULSE 74; RESP 20; TEMP 98
[2024-03-09] VITALS: BP 144/80; PULSE 83; RESP 20; TEMP 98
[2024-03-09 03:50] VITALS: BP 109/54; PULSE 75; RESP 20; TEMP 98
[2024-03-09 07:45] VITALS: BP 126/83; PULSE 69; RESP 20; TEMP 97.6
[2024-03-09 16:10] VITALS: BP 135/73; PULSE 80; RESP 16; TEMP 98
[2024-03-09 19:15] VITALS: BP 126/68; PULSE 72; RESP 20; TEMP 98.2
[2024-03-09 23:02] VITALS: BP 134/83; PULSE 79; RESP 20; TEMP 98
[2024-03-10 08:00] VITALS: BP 138/88; PULSE 71; RESP 20; TEMP 98.3
== END 2024-03-10 09:30 | disposition home or self-care (01) | DRG 760 ==
LOC: EDH 23:55 → EDHIP 03-07 05:18 → WSH 03-07 05:45
PROVIDERS: ADMIT Obstetrics & Gynecology; ATTEND Obstetrics & Gynecology
DX: N83.201 Unspecified ovarian cyst, right side (principal); Z68.43 Body mass index [BMI] 50.0-59.9, adult; C50.911 Malignant neoplasm of unspecified site of right female breast; C50.912 Malignant neoplasm of unspecified site of left female breast; E66.01 Morbid (severe) obesity due to excess calories; Z90.13 Acquired absence of bilateral breasts and nipples; Z98.891 History of uterine scar from previous surgery
CPT/HCPCS: 36415; 74177; 76857; 80048; 81001; 83690; 84703; 85025; 87086; 96365; 96372; 96374; 96375; G0378; J1885; J2175; J2405; J2550; J7120; Q9967

== ENCOUNTER 2024-11-02 22:15 | Emergency (ER) | payer BC, OTHER ==
[~2024-11-02] VITALS: Ht 175.3 cm; Wt 141.5 kg
--- NOTE | 2024-11-02 22:23 | NUR ---
UA CUP PROVIDED
[2024-11-02 22:50] LABS: BASOPHILS # (AUTO) 0.04 K/uL (0.00-0.20); BASOPHILS % (AUTO) 0.4 % (0.0-5.0); EOSINOPHILS # (AUTO) 0.49 K/uL (0.00-0.70); EOSINOPHILS % (AUTO) 4.6 % (0.0-8.0); HEMATOCRIT 38.2 % (36-48); IMMATURE GRANULOCYTE ABSOLUTE 0.04 K/uL (0-1); LYMPHOCYTES # (AUTO) 2.5 K/uL (1.0-4.8); LYMPHOCYTES % (AUTO) 23.7 % (21.0-51.0); MEAN CORPUSCULAR HEMOGLOBIN 26.5 pg (27.0-33.0); MEAN CORPUSCULAR HGB CONC 32.2 g/dL (32.0-36.0); MEAN CORPUSCULAR VOLUME 82.3 fL (79-99); MONOCYTES # (AUTO) 0.8 K/uL (0.1-1.0); MONOCYTES % (AUTO) 7.1 % (3.0-13.0); NEUTROPHILS # (AUTO) 6.7 K/uL (1.8-7.7); NEUTROPHILS % (AUTO) 63.8 % (40.0-77.0); PLATELET COUNT (AUTO) 335 K/uL (130-400); RED BLOOD CELL COUNT(AUTO) 4.64 MIL/uL (4.00-5.50); RED CELL DISTRIBUTION WIDTH 14.2 % (11.0-15.5); WHITE BLOOD COUNT (AUTO) 10.6 K/uL (4.8-10.8)
[2024-11-02 22:51] LABS: APPEARANCE,URINE CLEAR (CLEAR); BILIRUBIN,URINE NEGATIVE (NEGATIVE); COLOR,URINE LIGHT-YELLOW (YELLOW); GLUCOSE, URINE (UA) NEGATIVE (NEGATIVE); KETONES,URINE NEGATIVE (NEGATIVE); LEUKOCYTE ESTERASE ,URINE 25 Leu/uL (NEGATIVE); NITRATE,URINE NEGATIVE (NEGATIVE); OCCULT BLOOD,URINE NEGATIVE (NEGATIVE); PROTEIN,URINE 10 mg/dL (NEGATIVE); UROBILINOGEN,URINE 0.2 mg/dL (0.2-1.0)
[2024-11-02 22:52] LABS: ADD UA MICROSCOPIC YES
[2024-11-02 22:54] LABS: BACTERIA,URINE FEW /HPF (None Seen); MUCUS,URINE RARE LPF (None Seen); SQUAMOUS EPITHELIAL CELL,UR FEW /HPF (0-2)
[2024-11-02 22:57] LABS: CREATININE 1.1 mg/dL (0.5-1.0); POTASSIUM 3.7 mmol/L (3.5-5.1)
[2024-11-02 23:02] LABS: ALBUMIN 3.7 g/dL (3.5-5.0); BILIRUBIN,DIRECT 0.2 mg/dL (0.0-0.3); BILIRUBIN,TOTAL 0.5 mg/dL (0.2-1.0); TOTAL PROTEIN, SERUM 7.2 g/dL (6.0-8.3)
[2024-11-02 23:04] LABS: RAPID GROUP A STREP negative (NEGATIVE)
[2024-11-02 23:10] LABS: SARS-CoV-2, RNA, NAAT NEGATIVE SARS CoV-2 (NEGATIVE)
[2024-11-02 23:14] LABS: INFLUENZA TYPE A Negative For Type A (NEGATIVE); INFLUENZA TYPE B Negative For Type B (NEGATIVE)
--- NOTE | 2024-11-02 23:47 | HMCIMG ---
CT ABDOMEN/PELVIS W/O CONTRAST HISTORY: Right ovarian cyst COMPARISON: 03/07/2004 TECHNIQUE: Multiple sequential axial images of the abdomen and pelvis were obtained from the dome of the diaphragm through symphysis pubis. Patient was not given contrast through intravenous route. Oral contrast was not given. FINDINGS: No pleural effusion is seen bilaterally. There is no evidence of parenchymal disease or pulmonary nodule of the visualized lower lungs. Degenerative changes of the thoracolumbar spine are present. The heart is not enlarged. Liver is enlarged with fatty changes measuring 23 cm. The liver, spleen, adrenal glands and pancreas are unremarkable. There is no evidence of hydronephrosis bilaterally. No evidence of renal stone is seen. Fecal material is seen in the colon. There are normal size retroperitoneal and mesenteric lymph nodes. No ascites is seen. No CT evidence of acute appendicitis is seen. No evidence of ovarian cyst is seen. Pelvic sidewalls are symmetric bilaterally. The bladder is well distended. IMPRESSION: 1. No acute findings. CT was performed with one or more following dose reduction techniques: automated exposure control, adjustment of the mA and kv according to patient's size, or use of a iterative reconstruction technique.
--- NOTE | 2024-11-02 23:55 | ERN ---
ED Note History of Present Illness Stated Complaint: SEVERE ABDOMINAL AND BACK PAIN Chief Complaint: Abdominal Pain Time Seen by MD: 22:21 Dictation: This is a 29-year-old morbidly obese female who presented to the emergency room with complaints of abdominal pain and lower back pain. She has had similar presentation in the past at which time a CT scan of the abdomen and pelvis revealed a right ovarian cyst with hemorrhage. She also has a known history of PCOS. This particular admission she does report that the pain started in the l ower back 1st and radiates to the abdomen. When she moves the leg the pain is excruciating. No bladder or bowel incontinence. She still able to ambulate. Currently on immunotherapy for the breast cancer which she receives as subcutaneous shots in both her thighs alternating each time No fever chills or rigors no hematemesis or melena no other family members have been sick. She denied any diarrhea. Appears that the patient underwent resection of the ovaries and fallopian tubes which she did not mention until later Temperature 98.2� pulse 95 respirations 16 blood pressure 129/77 with a pulse oximetry of 98% on room air Chronic medical problems include PCOS and hypothyroidism, breast cancer stage II status post mastectomy, surgical removal of ovaries and fallopian tubes Allergies: Coded Allergies: hydrocodone bit (Unverified Allergy, Unknown, NAUSEA AND RASH, 05/06/17) Home Meds Active Scripts Cyclobenzaprine HCl (Cyclobenzaprine HCl) 5 Mg Tablet, 1 TAB PO TIDP PRN for muscle spasms for 7 Days, #21 TAB 0 Refills Prov:HEIDY HERMAN MD 11/03/24 Prednisone (Prednisone) 20 Mg Tablet, 1 TAB PO AD for 6 Days, #14 TAB 0 Refills TAKE 1 TAB BY MOUTH THREE TIMES PER DAY X3 DAYS, THEN TAKE 1 TAB BY MOUTH TWICE A DAY X2 DAYS, THEN TAKE 1 TAB BY MOUTH ONCE A DAY X1 DAY. Prov:HEIDY HERMAN MD 11/03/24 Past Medical History Past Medical History: Hypothyroid, Other Additional Past Medical Hx: PCOS, BILATERAL BREAST MASTECTOMY AND RECONSTRUCTION , CANCER ST 2 Surgical History: Surgical History Other: OVARIES , BILATERAL MASECTOMY AND RECONSTRUCTION Family History: Negative Social History: Negative, Other History: Not Applicable RN Note Reviewed/Agreed w/PFSH: Yes Review of System Dictation Constitutional: Negative for fever,chills, and weight loss Eyes: Negative for injury, pain,redness, and discharge ENT: Negative for injury,pain or swelling Cardiovascular: Negative for chest pain, palpitations, and edema Respiratory: Negative for shortness of breath, cough, and wheezing, Abdomen/GI: Positive for abdominal pain, nausea, vomiting, diarrhea, and constipation Back: Negative for injury and positive for low back pain on the left side : Negative for injury, bleeding and discharge MS/Extremity: Negative for injury and deformity Skin: Negative for rash, and discoloration Neuro: Negative for headache, weakness, numbness, tingling, and seizure Psych: Negative for suicide ideation, homicidal ideation, and hallucinations Initial Vital Sign VS Vital Signs Date Time Temp Pulse Resp B/P (MAP) Pulse Ox O2 Delivery O2 Flow Rate FiO2 11/02/24 22:16 98.2 95 16 129/77 97 Room Air 11/02/24 22:28 0 21 Physical Exam Dictation General: awake, alert, NAD Head/Face: Normocephalic, atraumatic Eyes: PERRL, EOMI, vision at baseline ENT: oral cavity clear, TMs clear, no signs of infection Neck: Trachea midline, supple, no nuchal rigidity Cardiovascular: RRR, normal S1/S2, No MRGs, no JVD Respiratory: CTAB, no respiratory distress, No rales or wheezes Abdomen: Soft, non-tender, non-distended, normal bowel sounds, no guarding or rebound. Skin: Warm, dry, normal turgor, no rash MS/Extremity: Pulses equal, no cyanosis, neurovascular intact, FROM Neuro: COAx4, GCS 15, strength 5/5, CN 2-12 intact, normal cerebellar exam, normal gait, Psych: Normal behavior, mood, and affect normal Extremities-trace edema without any palpable cords, Homans sign is negative Results (Laboratory/Radiology) Laboratory/Radiology Laboratory Tests Test 11/02/24 22:25 11/02/24 22:42 White Blood Count 10.6 K/uL (4.8-10.8) Red Blood Count 4.64 MIL/uL (4.00-5.50) Hemoglobin 12.3 g/dL (12.0-16.0) Hematocrit 38.2 % (36-48) Mean Corpuscular Volume 82.3 fL (79-99) Mean Corpuscular Hemoglobin 26.5 pg (27.0-33.0) L Mean Corpuscular Hemoglobin Concent 32.2 g/dL (32.0-36.0) Red Cell Distribution Width 14.2 % (11.0-15.5) Platelet Count 335 K/uL (130-400) Mean Platelet Volume 10.0 fL (7.5-10.5) Immature Granulocyte % (Auto) 0.4 % (0-1) Neutrophils (%) (Auto) 63.8 % (40.0-77.0) Lymphocytes (%) (Auto) 23.7 % (21.0-51.0) Monocytes (%) (Auto) 7.1 % (3.0-13.0) Eosinophils (%) (Auto) 4.6 % (0.0-8.0) Basophils (%) (Auto) 0.4 % (0.0-5.0) Neutrophils # (Auto) 6.7 K/uL (1.8-7.7) Lymphocytes # (Auto) 2.5 K/uL (1.0-4.8) Monocytes # (Auto) 0.8 K/uL (0.1-1.0) Eosinophils # (Auto) 0.49 K/uL (0.00-0.70) Basophils # (Auto) 0.04 K/uL (0.00-0.20) Absolute Immature Granulocyte (auto 0.04 K/uL (0-1) Nucleated Red Blood Cells 0.0 % (0.0-0.19) Urine Color LIGHT-YELLOW (YELLOW) Urine Appearance CLEAR (CLEAR) Urine pH 6.0 (5.0-8.0) Urine Specific [place] 1.029 (1.001-1.031) Urine Protein 10 mg/dL (NEGATIVE) H Urine Glucose (UA) NEGATIVE mg/dL (NEGATIVE) Urine Ketones NEGATIVE mg/dL (NEGATIVE) Urine Occult Blood NEGATIVE (NEGATIVE) Urine Nitrate NEGATIVE (NEGATIVE) Urine Bilirubin NEGATIVE mg/dL (NEGATIVE) Urine Urobilinogen 0.2 mg/dL (0.2-1.0) Urine Leukocyte Esterase 25 Vipul/uL (NEGATIVE) H Urine RBC 2-5 /HPF (0-1) H Urine WBC 2-5 /HPF (0-1) H Urine Squamous Epithelial Cells FEW /HPF (0-2) Urine Bacteria FEW /HPF (None Seen) Urine HCG, Qualitative NEGATIVE (NEGATIVE) Sodium Level 139 mmol/L (136-145) Potassium Level 3.7 mmol/L (3.5-5.1) Chloride Level 104 mmol/L (101-111) Carbon Dioxide Level 28 mmol/L (21-32) Blood Urea Nitrogen 11 mg/dL (7-18) Creatinine 1.1 mg/dL (0.5-1.0) H Glomerular Filtration Rate Calc 69 mL/min (>90) Random Glucose 106 mg/dL (70-105) H Total Calcium 8.7 mg/dL (8.5-10.1) Total Bilirubin 0.5 mg/dL (0.2-1.0) Direct Bilirubin 0.2 mg/dL (0.0-0.3) Aspartate Amino Transf (AST/SGOT) 24 U/L (10-37) Alanine Aminotransferase (ALT/SGPT) 40 U/L (12-78) Alkaline Phosphatase 76 U/L (50-136) Total Protein 7.2 g/dL (6.0-8.3) Albumin 3.7 g/dL (3.5-5.0) Lipase 34 U/L (16-77) Influenza Type A Antigen Negative For Type A Influenza Type B Antigen Negative For Type B SARS-CoV-2, RNA, NAAT NEGATIVE SARS CoV-2 Group A Streptococcus Rapid negative (NEGATIVE) Labs Reviewed?: Yes CT Scan Comment: REASON: right ovarian cyst history with hemorrhage ORDERING PHYSICIAN: HEIYD HERMAN MD PROCEDURE: ABD PEL WO - CT ABDOMEN/PELVIS W/O CONTRAST CT ABDOMEN/PELVIS W/O CONTRAST HISTORY: Right ovarian cyst COMPARISON: 03/07/2004 TECHNIQUE: Multiple sequential axial images of the abdomen and pelvis were obtained from the dome of the diaphragm through symphysis pubis. Patient was not given contrast through intravenous route. Oral contrast was not given. FINDINGS: No pleural effusion is seen bilaterally. There is no evidence of parenchymal disease or pulmonary nodule of the visualized lower lungs. Degenerative changes of the thoracolumbar spine are present. The heart is not enlarged. Liver is enlarged with fatty changes measuring 23 cm. The liver, spleen, adrenal glands and pancreas are unremarkable. There is no evidence of hydronephrosis bilaterally. No evidence of renal stone is seen. Fecal material is seen in the colon. There are normal size retroperitoneal and mesenteric lymph nodes. No ascites is seen. No CT evidence of acute appendicitis is seen. No evidence of ovarian cyst is seen. Pelvic sidewalls are symmetric bilaterally. The bladder is well distended. IMPRESSION: 1. No acute findings. CT was performed with one or more following dose reduction techniques: automated exposure control, adjustment of the mA and kv according to patient's size, or use of a iterative reconstruction technique. DICTATED BY: LUCIO KEENE MD DATE: 11/02/242341 ELECTRONICALLY SIGNED BY: LUCIO KEENE MD DATE: 11/02/242346 ED Course ED Course Orders Procedure Category Date Status Time Cbc With Differential LAB 11/02/24 Complete 22:26 Basic Metabolic Panel LAB 11/02/24 Complete 22:26 Lipase LAB 11/02/24 Complete 22:26 Hepatic Function Panel LAB 11/02/24 Complete 22:26 Urinalysis Profile LAB 11/02/24 Complete 22:26 Influenza Type A & B, LAB 11/02/24 Complete Rapid 22:37 Covid Rna Naat LAB 11/02/24 Complete 22:37 Rapid (Group A Strep) LAB 11/02/24 Complete 22:37 Ct Abdomen/Pelvis W/O CT 11/02/24 Resulted Contrast 23:06 ,Urine Test LAB 11/02/24 Complete 23:55 Ketorolac PHA 11/03/24 Complete Tromethamine 30mg/Ml 00:30 Methylprednisolone PHA 11/03/24 Complete Succ 125mg (Solu-Medr 00:30 Cyclobenzaprine Hcl PHA 11/03/24 Complete (Cyclobenzaprine Hcl 00:30 Current Medications Medications (Trade) Dose Ordered Sig/Darell Route PRN Reason Start Time Stop Time Status Last Admin Dose Admin Cyclobenzaprine HCl (Cyclobenzaprine HCl) 5 mg ONCE ONCE PO 11/03/24 00:30 11/03/24 00:31 DC 11/03/24 00:22 Ketorolac Tromethamine (toRADol) 30 mg ONCE ONCE IM 11/03/24 00:30 11/03/24 00:31 DC 11/03/24 00:23 Methylprednisolone Sodium Succinate (Solu-medROL 125MG) 60 mg ONCE ONCE IM 11/03/24 00:30 11/03/24 00:31 DC 11/03/24 00:22 Vital Signs Date Time Temp Pulse Resp B/P (MAP) Pulse Ox O2 Delivery O2 Flow Rate FiO2 11/02/24 22:28 98.2 95 18 129/77 97 Room Air* 0 21 11/02/24 22:16 98.2 95 16 129/77 97 Room Air We will perform diagnostic labs, advanced imaging and administer medications according to the patient's complaint. Once the results are available, will review and personally interpreted the labs to rule out any acute life- threatening emergency the trach require immediate intervention and treatment. I will then re-evaluate the patient after treatment and diagnostic exams have return to determine whether the patient requires any further testing, can safely be discharged home or need further admission to hospital for additional treatment and evaluation. Labs reviewed CBC showed a white count of 10.6. BNP 7 is with a normal limits BUN and creatinine are 11 and 1.1. Hepatic profile is completely within normal limits urinalysis showed mild leuko esterase positive but no WBCs or nitrites. Viral serology negative for influenza COVID and rapid strep. CT scan of the abdomen and pelvis has been done and the results are pending at this time 12:[address] scan of the abdomen and pelvis reported as no acute abnormality. No evidence of any ovaries which she confirmed. I updated the patient at bedside on all the labs as well as the CT findings and entertaining the possibility of lumbar radiculopathy. Trial of NSAID and a steroid and avoid any opioids at this time as she stated that she needed to work tomorrow Discharge to follow up with her primary care physician Medical Decision Making MDM MDM: Differential diagnosis: Lumbar radiculopathy, pyelonephritis, diverticulitis, constipation, cholecystitis Rationale: Tests considered and ordered secondary to shared decision making include: Previous outside records reviewed: Old ER visits. Risk of complication and/or morbidity or mortality of patient management: None Medications-Per medication reconciliation Need for hospitalization: Patient does not meet criteria for hospitalization. Need for emergency major/minor surgery: No There are no social concerns with this patient. Prescription drug management Prescriptions will include symptomatic care Patient's prior external medical records from other ER visits were reviewed by me as indicated. Prior testing and results from previous visits were reviewed. Prior tests were taken into account with medical decision making and resource utilization, independent historian/historians were used to obtain complete medical history. I independently interpreted the test that were performed, results were reviewed by me and considered findings on radiology if ordered. Medical management and examination interpretation discussions were had by me with other qualified healthcare professionals as indicated for the patient's care. Problem List Problem List: (1) Abdominal pain (2) Paraspinal muscle spasm (3) Lumbar radiculopathy DX & DISP Disposition: Discharge Departure Impression: Primary Impression: Abdominal pain Additional Impressions: Lumbar radiculopathy, Paraspinal muscle spasm Condition: Stable Scripts Cyclobenzaprine HCl (Cyclobenzaprine HCl) 5 Mg Tablet 1 TAB PO TIDP PRN for muscle spasms for 7 Days, #21 TAB 0 Refills Prov: HEIDY HERMAN MD 11/03/24 Prednisone (Prednisone) 20 Mg Tablet 1 TAB PO AD for 6 Days, #14 TAB 0 Refills TAKE 1 TAB BY MOUTH THREE TIMES PER DAY X3 DAYS, THEN TAKE 1 TAB BY MOUTH TWICE A DAY X2 DAYS, THEN TAKE 1 TAB BY MOUTH ONCE A DAY X1 DAY. Prov: HEIDY HERMAN MD 11/03/24 Additional Instructions: Patient and the caregiver have been informed of all the diagnostic tests and the imaging conducted during the today's visit to the emergency room and has verbalized understanding of the results I have personally reviewed and interpreted all diagnostic exams performed here in the ER today as well as the vital signs documented by the nursing staff. The patient is now being discharged to home and should follow up with the primary care physician or the specialist as directed by the ER staff. Follow-up with primary care provider in 1 to 2 days. Take medications as directed here in the emergency room. Okay to continue home medications unless otherwise discussed during your visit in the emergency room today. Return to your nearest emergency room if symptoms worsen or if there is no improvement. Call 911 if you need immediate assistance. Take Tylenol or Motrin [id number] as needed and if no contraindications are present. Increase oral hydration. A wound culture or urine culture was ordered here in the emergency room department please follow-up with primary care provider and advise them to get repeat ports from our facility. If you had any Ludwig wrap/splints that were applied here, please do not remove them until you see your primary care or specialty. Referrals: SELF,REFERRAL (PCP) HEIDY HERMAN MD November 02, 2024 23:55
[2024-11-03] MEDS ORDERED: CYCL5TAB3 PO (00:19)
[2024-11-03] MEDS ORDERED: PRED20TA3 PO (00:19)
[2024-11-03] MEDS: CYCLOBENZAPRINE HCL 10 MG TABLET PO ONE (00:22)
[2024-11-03] MEDS: Solu-medROL 125MG VIAL IM ONE (00:22)
[2024-11-03] MEDS: ketOROlac 30MG VIAL (30MG/ML) IM ONE (00:23)
[2024-11-03 01:33] VITALS: BP 136/68; PULSE 78; RESP 19; TEMP 98.1; O2SAT 96
== END 2024-11-03 01:47 | disposition home or self-care (01) ==
LOC: EDH 22:15
DX: M54.16 Radiculopathy, lumbar region (principal); Z20.822 Contact with and (suspected) exposure to COVID-19; M62.830 Muscle spasm of back; E03.9 Hypothyroidism, unspecified; Z90.13 Acquired absence of bilateral breasts and nipples; Z88.8 Allergy status to other drugs, medicaments and biological substances; Z79.899 Other long term (current) drug therapy; Z79.52 Long term (current) use of systemic steroids
CPT/HCPCS: 99284; 74176; 87635; 80076; 80048; 83690; 85025; 87880; 87804 ×2; 81001; 81025; 36415; 96372; J1885; J2919

== ENCOUNTER 2024-11-24 05:18 | Emergency (ER) | payer BC ==
[~2024-11-24] VITALS: Ht 175.3 cm; Wt 140.6 kg
[~2024-11-24 05:18] MED LIST changes: -ACET1TAB12 PO; +CYCL5TAB3 PO; -DOCU-116 PO; -IBUP-1493 PO; +PRED20TA3 PO; -PREN-196 PO
[2024-11-24 05:45] LABS: BASOPHILS # (AUTO) 0.03 K/uL (0.00-0.20); BASOPHILS % (AUTO) 0.2 % (0.0-5.0); EOSINOPHILS # (AUTO) 0.37 K/uL (0.00-0.70); EOSINOPHILS % (AUTO) 2.5 % (0.0-8.0); HEMATOCRIT 36.7 % (36-48); IMMATURE GRANULOCYTE ABSOLUTE 0.08 K/uL (0-1); LYMPHOCYTES # (AUTO) 5.1 K/uL (1.0-4.8); LYMPHOCYTES % (AUTO) 35.1 % (21.0-51.0); MEAN CORPUSCULAR HEMOGLOBIN 25.9 pg (27.0-33.0); MEAN CORPUSCULAR HGB CONC 31.6 g/dL (32.0-36.0); MEAN CORPUSCULAR VOLUME 81.9 fL (79-99); MONOCYTES # (AUTO) 0.9 K/uL (0.1-1.0); MONOCYTES % (AUTO) 6.3 % (3.0-13.0); NEUTROPHILS % (AUTO) 55.3 % (40.0-77.0); PLATELET COUNT (AUTO) 294 K/uL (130-400); RED BLOOD CELL COUNT(AUTO) 4.48 MIL/uL (4.00-5.50); RED CELL DISTRIBUTION WIDTH 14.7 % (11.0-15.5); WHITE BLOOD COUNT (AUTO) 14.5 K/uL (4.8-10.8)
[2024-11-24 05:53] LABS: CREATININE 1.1 mg/dL (0.5-1.0); POTASSIUM 3.3 mmol/L (3.5-5.1)
[2024-11-24] MEDS: 0.9%NACL 1000ML 1,000 ML IV ONE (06:12)
[2024-11-24 06:18] LABS: APPEARANCE,URINE CLEAR (CLEAR); BILIRUBIN,URINE NEGATIVE (NEGATIVE); COLOR,URINE COLORLESS (YELLOW); GLUCOSE, URINE (UA) NEGATIVE (NEGATIVE); KETONES,URINE NEGATIVE (NEGATIVE); LEUKOCYTE ESTERASE ,URINE 250 Leu/uL (NEGATIVE); NITRATE,URINE NEGATIVE (NEGATIVE); OCCULT BLOOD,URINE LARGE (NEGATIVE); PROTEIN,URINE NEGATIVE (NEGATIVE); UROBILINOGEN,URINE 0.2 mg/dL (0.2-1.0)
[2024-11-24 06:20] LABS: ADD UA MICROSCOPIC YES
[2024-11-24 06:21] LABS: SQUAMOUS EPITHELIAL CELL,UR FEW /HPF (0-2)
[2024-11-24 07:00] VITALS: BP 128/78; PULSE 82; RESP 15; TEMP 98.8; O2SAT 97
--- NOTE | 2024-11-24 07:00 | NUR ---
ED MD RAMIRES MADE AWARE OF POTASSIUM LEVEL AT THIS TIME
[2024-11-24] MEDS ORDERED: CEFI400C4 PO (07:03)
--- NOTE | 2024-11-24 07:03 | ERN ---
General Chief Complaint: Vaginal Bleeding Stated Complaint: VAGINAL BLEEDING, HX OF BREAST CANCER Time Seen by MD: 05:50 Source: patient History of Present Illness Initial Comments Patient is a 29-year-old female who has had what appears to be vaginal bleeding over the last several days. However patient has a history of breast cancer and has had breast cancer surgery as well as a bilateral oophorectomy. She is currently taking doxycycline for a upper respiratory tract infection Allergies: Coded Allergies: hydrocodone bit (Unverified Allergy, Unknown, NAUSEA AND RASH, 05/06/17) Home Meds Active Scripts Cefixime (Cefixime) 400 Mg Capsule, 400 MG PO DAILY for uti for 14 Days, #14 CAP Prov:SHAMAR GALLOWAY MD 11/24/24 Cyclobenzaprine HCl (Cyclobenzaprine HCl) 5 Mg Tablet, 1 TAB PO TIDP PRN for muscle spasms for 7 Days, #21 TAB 0 Refills Prov:HEIDY HERMAN MD 11/03/24 Prednisone (Prednisone) 20 Mg Tablet, 1 TAB PO AD for 6 Days, #14 TAB 0 Refills TAKE 1 TAB BY MOUTH THREE TIMES PER DAY X3 DAYS, THEN TAKE 1 TAB BY MOUTH TWICE A DAY X2 DAYS, THEN TAKE 1 TAB BY MOUTH ONCE A DAY X1 DAY. Prov:HEIDY HERMAN MD 11/03/24 Past Medical History Past Medical History: Cancer Medical History Other: PCOS, BILATERAL BREAST MASTECTOMY AND RECONSTRUCTION , CANCER ST 2 Past Surgical History: Other Surgical History Other: BILATERAL MASTECTOMY WITH RECONSTRUCTION, BILATERAL OOPHRECTOMY Family History Family History: Negative Social History Social History: Negative, Other Female( History) History: Not Applicable Constitutional: (-) chills, (-) diaphoresis, (-) fever, (-) malaise, (-) weakness, (-) other documentation EENTM: (-) eye pain, (-) blurred vision, (-) tearing, (-) double vision, (-) ear pain, (-) ear discharge, (-) nose pain, (-) nose congestion, (-) throat pain, (-) Throat swelling, (-) mouth pain, (-) tooth pain, (-) mouth swelling, (-) other documentation Cardiovascular: (-) chest pain, (-) edema, (-) palpitations, (-) syncope, (-) dyspnea on exertion, (-) other documentation Gastrointestinal/Abdominal: (-) nausea, (-) vomiting, (-) diarrhea, (-) abdominal pain, (-) abdominal distention, (-) constipation, (-) rectal bleeding, (-) dark stool/melena, (-) other documentation Genitourinary: (+) vaginal bleeding Musculoskeletal: (-) Neck pain, (-) back pain, (-) Flank Pain, (-) joint pain, (-) joint swelling, (-) muscle pain, (-) muscle stiffness, (-) gout, (-) other documentation Skin: (-) laceration, (-) contusion, (-) abrasion, (-) abscess, (-) rash, (-) change in color, (-) change in hair, (-) change in nails, (-) diaphoresis, (-) dryness, (-) other documentation Neuro: (-) altered mental status, (-) headache, (-) syncope, (-) paralysis, (-) numbness, (-) seizure, (-) pre-existing deficit, (-) tremors, (-) weakness, (-) dizziness, (-) slurred speech, (-) vertigo, (-) other documentation Physical Exam General Appearance: (+) no apparent distress Orientation: (+) alert, (+) oriented x 3 Head/Face Trauma: No Eye: bilateral eye normal inspection, bilateral eye PERRL, bilateral eye EOMI Ear, Nose, Throat: (+) hearing grossly normal, (+) normal ENT inspection Neck: (+) normal inspection, (+) supple Respiratory: (+) chest non-tender, (+) lungs clear Heart: (+) regular, (+) no gallop Gastrointestinal: (+) soft, (+) non-tender Results Laboratory and Microbiology Lab and Micro Result Laboratory Tests Test 11/24/24 05:31 11/24/24 05:34 White Blood Count 14.5 K/uL (4.8-10.8) H Red Blood Count 4.48 MIL/uL (4.00-5.50) Hemoglobin 11.6 g/dL (12.0-16.0) L Hematocrit 36.7 % (36-48) Mean Corpuscular Volume 81.9 fL (79-99) Mean Corpuscular Hemoglobin 25.9 pg (27.0-33.0) L Mean Corpuscular Hemoglobin Concent 31.6 g/dL (32.0-36.0) L Red Cell Distribution Width 14.7 % (11.0-15.5) Platelet Count 294 K/uL (130-400) Mean Platelet Volume 9.3 fL (7.5-10.5) Immature Granulocyte % (Auto) 0.6 % (0-1) Neutrophils (%) (Auto) 55.3 % (40.0-77.0) Lymphocytes (%) (Auto) 35.1 % (21.0-51.0) Monocytes (%) (Auto) 6.3 % (3.0-13.0) Eosinophils (%) (Auto) 2.5 % (0.0-8.0) Basophils (%) (Auto) 0.2 % (0.0-5.0) Neutrophils # (Auto) 8.0 K/uL (1.8-7.7) H Lymphocytes # (Auto) 5.1 K/uL (1.0-4.8) H Monocytes # (Auto) 0.9 K/uL (0.1-1.0) Eosinophils # (Auto) 0.37 K/uL (0.00-0.70) Basophils # (Auto) 0.03 K/uL (0.00-0.20) Absolute Immature Granulocyte (auto 0.08 K/uL (0-1) Nucleated Red Blood Cells 0.0 % (0.0-0.19) Sodium Level 139 mmol/L (136-145) Potassium Level 3.3 mmol/L (3.5-5.1) L Chloride Level 103 mmol/L (101-111) Carbon Dioxide Level 30 mmol/L (21-32) Blood Urea Nitrogen 27 mg/dL (7-18) H Creatinine 1.1 mg/dL (0.5-1.0) H Glomerular Filtration Rate Calc 69 mL/min (>90) Random Glucose 155 mg/dL (70-105) H Total Calcium 8.3 mg/dL (8.5-10.1) L Urine Color COLORLESS (YELLOW) Urine Appearance CLEAR (CLEAR) Urine pH 6.0 (5.0-8.0) Urine Specific [place] 1.020 (1.001-1.031) Urine Protein NEGATIVE mg/dL (NEGATIVE) Urine Glucose (UA) NEGATIVE mg/dL (NEGATIVE) Urine Ketones NEGATIVE mg/dL (NEGATIVE) Urine Occult Blood LARGE (NEGATIVE) H Urine Nitrate NEGATIVE (NEGATIVE) Urine Bilirubin NEGATIVE mg/dL (NEGATIVE) Urine Urobilinogen 0.2 mg/dL (0.2-1.0) Urine Leukocyte Esterase 250 Vipul/uL (NEGATIVE) H Urine RBC 2-5 /HPF (0-1) H Urine WBC 11-25 /HPF (0-1) H Urine Squamous Epithelial Cells FEW /HPF (0-2) Urine Bacteria None /HPF (None Seen) MDM Given the patient's oophorectomy it is highly unlikely that patient is having menses. [place] start the workup by checking for a hematuria urinary tract infection. Patient's CBC shows a white count of approximately 14. Chemistry panel does show an acute kidney injury. Urinalysis shows a UTI. Patient is already on doxycycline which may or may not mean that the UTI is E coli. But in either case I think I need to use a stronger antibiotic. I will give her a dose of Rocephin and syndrome and a 3rd generation cephalosporin. ED Course Orders Procedure Category Date Status Time Cbc With Differential LAB 11/24/24 In Process 05:33 Basic Metabolic Panel LAB 11/24/24 Complete 05:33 Urinalysis Profile LAB 11/24/24 Complete 05:58 0.9%Nacl 1000ml (Ns PHA 11/24/24 Complete 1000ml) 06:30 Culture Urine PAOLO 11/24/24 In Process 06:21 Ceftriaxone 1g Vial PHA 11/24/24 Transmitted (Rocephine 1g Inj) 07:03 Current Medications Medications (Trade) Dose Ordered Sig/Darell Route PRN Reason Start Time Stop Time Status Last Admin Dose Admin Sodium Chloride 1,000 ml @ 0 mls/hr ONCE ONCE IV 11/24/24 06:30 11/24/24 06:31 DC 11/24/24 06:12 Vital Signs Date Time Temp Pulse Resp B/P (MAP) Pulse Ox O2 Delivery O2 Flow Rate FiO2 11/24/24 06:38 86 16 122/77 97 Room Air* 0 11/24/24 05:51 98.2 84 19 142/87 98 Room Air* 0 11/24/24 05:21 98.2 86 16 150/97 100 0 DX & DISP Disposition: Discharge Departure Impression: Primary Impression: UTI (urinary tract infection) Condition: Stable Scripts Cefixime (Cefixime) 400 Mg Capsule 400 MG PO DAILY for uti for 14 Days, #14 CAP Prov: SHAMAR GALLOWAY MD 11/24/24 Additional Instructions: Please return to the emergency room if your urinary tract infection does not improve in the next 2-3 days. Please continue to take your antibiotics for the full period. As prescribed. Referrals: SELF,REFERRAL (PCP) SHAMAR GALLOWAY MD Nov 24, 2024 07:03
--- NOTE | 2024-11-24 07:08 | NUR ---
REPORT GIVEN TO MIC HAWKINS AT THIS TIME
[2024-11-24] MEDS: cefTRIAXone 1G VIAL IVP STA (07:51)
[2024-11-24 08:59] VITALS: TEMP 98.2
[2024-11-24] MEDS: acetaMINOPHEN 500 MG TABLET PO ONE (08:59)
--- NOTE | 2024-11-24 11:05 | HMCIMG ---
US PELVIC NON-OB LIMITED REASON: vag bleed COMPARISON: 03/07/2024 TECHNIQUE: Routine pelvic sonogram was performed and compared to prior study. FINDINGS: Uterus is 10.5 x 3.4 x 5.6 cm endometrium is 7 mm. There are no endometrial or myometrial masses. Both ovaries are absent. There are no adnexal masses. There are is no free fluid in the cul-de-sac. IMPRESSION: 1. Unremarkable pelvic sonogram.
== END 2024-11-24 10:00 | disposition home or self-care (01) ==
LOC: EDH 05:18
DX: N39.0 Urinary tract infection, site not specified (principal); Z79.2 Long term (current) use of antibiotics; Z85.3 Personal history of malignant neoplasm of breast; Z90.13 Acquired absence of bilateral breasts and nipples; Z79.899 Other long term (current) drug therapy
CPT/HCPCS: 99284; 96374; 76857; 80048; 85025; 87086; 81001; 36415; J7030; J0696